=== PATIENT | female | born 1950 | race Caucasian/White ===

== ENCOUNTER 2018-09-04 13:30 | Observation (INO) | payer OTHER ==
[~2018-09-04] VITALS: Ht 165.1 cm; Wt 113.4 kg
[2018-09-04] VITALS (12 sets, daily range): BP systolic 114–160; BP diastolic 62–97
--- NOTE | ~2018-09-04 | H ---
[facility] [place] [address] HISTORY AND PHYSICAL Name: YEIMIOFELIA B Room #: 212-P ADM IN M.R.#: [id number] Admission: 09/04/18 Attend Phys: Bert Zelaya Discharge: Date of : 48 Report #: [id number] THIS REPORT FOR: //name// CC: BREE physician/PCP Bert Zelaya HISTORY OF PRESENT ILLNESS: This is a very pleasant 67-year-old female patient without prior history of cardiovascular disease, who presented to the Emergency Room with complaints of retrosternal discomfort. The patient stated that she had some symptoms a day prior to presentation, which was substernal and nonradiating. It was quite brief in duration and resolved. 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 It resolved quickly after ____, but it recurred. The patient stated that it had some radiation when it recurred into the upper extremities or jaw, but principally her back at times. She denies any syncope or near syncope. No orthopnea, PND, but due to the change in symptoms, presented to the Emergency Room. Upon arriving to the Emergency Room was found to have lateral wall ST segment elevation consistent with ____. PAST MEDICAL HISTORY: Significant for: 1. Obesity. 2. Degenerative joint disease. PAST SURGICAL HISTORY: Significant for multiple tooth extractions. MEDICATIONS AT HOME: None. Had been previously on pain control medications of [place]. ALLERGIES: No known drug allergy. ELECTROCARDIOGRAM: Normal sinus rhythm, ST segment elevation in 1 and aVL with reciprocal changes in the inferior and lateral leads. SOCIAL HISTORY: The patient does not follow a particular exercise regimen. She does consume alcohol socially. Does not smoke and never has. TENZIN heart score is 7. REVIEW OF SYSTEMS: Except for the symptoms previously mentioned and those commensurate with comorbid state, the 10-point review of system is negative. PHYSICAL EXAMINATION: GENERAL: Well-developed, well-nourished, obese white female in mild distress, but resting comfortably. VITAL SIGNS: Present and noted in the chart. HEENT: Normocephalic, atraumatic. Pupils are equal, round, reactive to light and accommodation. Extraocular muscles are intact. Sclerae and conjunctivae [address] [address] HISTORY AND PHYSICAL Name: OFELIA JALLOH Rachid Room #: [facility] IN .R.#: [id number] Admission: 09/04/18 Attend Phys: Bert Zelaya Discharge: Date of : 48 Report #: [id number] are anicteric. NECK: JVD is normal. Carotid upstrokes are bilaterally symmetrical. No bruits are heard. No thyromegaly. No lymphadenopathy. LUNGS: Clear to auscultation. No wheezes, rhonchi or crackles. No CVA tenderness. CARDIAC: Demonstrates a regular rhythm. Normal first and second heart sounds. No ventricular or atrial gallops, no rubs noted. No murmurs. No lifts or heaves, PMI normal. ABDOMEN: Soft, nontender, nondistended. Normal bowel sounds. EXTREMITIES: Without cyanosis, clubbing or edema. Distal pulses are intact. DTR symmetrical. NEUROLOGIC: Cranial nerves 2-12 are grossly normal and symmetrical. PSYCHIATRIC: Alert, oriented with normal affect. SKIN: Warm and dry. IMPRESSION AND PLAN: 1. Acute anterolateral wall myocardial infarction consistent with either proximal circular or diagonal branch. In view of this and discussed options, I am going to proceed directly to the lab support tech for revascularization if warranted. The risks, complications and alternatives to cath, angioplasty, conscious sedation were discussed with the patient. She voiced understanding and wished to proceed. 2. Obesity. The patient has tried multiple times in the past to lose weight, but does not seem to be able to maintain long-term plans from that. Unknown lipid status. 3. Degenerative joint disease, multiple joints present. We will discuss management subsequent to treatment of above. <ELECTRONICALLY SIGNED> By: Bert Zelaya MD 09/04/18 2351 05 35 Bert Zelaya MD /nt
--- NOTE | ~2018-09-04 | EKG ---
[place] [address] [facility] [place] [address] ELECTROCARDIOGRAM REPORT Name: OFELIA JALLOH Rachid Room #: 212-P ADM IN M.R.#: [id number] Admission: 09/04/18 Attend Phys: Bert Zelaya Discharge: Date of : 48 Report #: [id number] THIS REPORT FOR: //name// [facility] ED Test Date: 2018-09-04 Test Time: 13:32:41 Pat Name: OFELIA JALLOH Department: Room: [facility] Gender: F Iv Technician: TANG : 1950 Requested By: Agustin Fleming Order Number: [id number] MD: Marek Panda Measurements Intervals [place] Rate: 80 P: 24 [place]: 201 QRS: -2 QRSD: 87 T: -22 QT: 382 QTc: 441 Interpretive Statements Sinus rhythm Occasional supraventricular complexes Low voltage, precordial leads Nonspecific repol abnormality, diffuse leads Compared to ECG 06/10/2015 10:13:17 ST and T wave abnormality is now present Electronically Signed On 09-05-2018 8:56:31 CDT by Marek Panda [email or web address] <ELECTRONICALLY SIGNED> By: Marek Panda MD, [facility] 09/05/18 0856 1332 1332 Marek Panda MD, [facility] /EPI
--- NOTE | ~2018-09-04 | D ---
[facility] [place] [address] DISCHARGE SUMMARY Name: YEIMIOFELIA Rachid Room #: 212-P [facility] Celestina Rodríguez#: [id number] Admission: 09/04/18 Attend Phys: Bert Zelaya Discharge: 09/05/18 Date of : 48 Report #: [id number] THIS REPORT FOR: //name// CC: BREE physician/PCP Bert Zelaya DATE OF SERVICE: 09/05/2018 ADMITTING DIAGNOSIS: Acute lateral wall myocardial infarction. DISCHARGE DIAGNOSES: 1. Acute lateral wall myocardial infarction. 2. Coronary artery disease. 3. Dyslipidemia. 4. Obesity. DISCHARGE MEDICATIONS: 1. Toprol-XL 12.5 mg b.i.d. 2. Aspirin daily. 3. Effient 10 mg daily. 4. Simvastatin 40 mg daily. 5. Sublingual nitroglycerin p.r.n. PROCEDURES PERFORMED: 1. Left heart catheterization. 2. Percutaneous coronary revascularization with a 2.25 x 12-mm SHANNON Medtronic stent taken to 18 atmospheres. DISCHARGE DIET: [place] [employer] step 1 diet. FOLLOWUP: 1. Dr. Zelaya in 4 weeks. 2. Alexandra Ca nurse practitioner in 7 days. BRIEF CLINICAL HISTORY: See history and physical in the chart. HOSPITAL COURSE: The patient was admitted to the hospital acutely from the Emergency Room and taken to the organic lab worker. Angiography demonstrated an essentially normal right coronary artery, which is quite large and dominant. The left circumflex had moderate irregularities, but the LAD had moderate mid LAD and distal LAD lesions. The first diagonal branch was completely occluded. Post-revascularization and stenting, the vessel was quite large and had excellent flow. Post-procedure, the patient had no electrical or hemodynamic instability. She was allowed to ambulate entire day and subsequently discharged [facility] [address] [place] [address] DISCHARGE SUMMARY Name: OFELIA JALLOH Room #: 212-P [facility] Celestina Rodríguez#: [id number] Admission: 09/04/18 Attend Phys: Bert Zelaya Discharge: 09/05/18 Date of : 48 Report #: [id number] to home in stable condition to follow up with the previously stated discharge instructions and medications. <ELECTRONICALLY SIGNED> By: Bert Zelaya MD 09/07/18 1259 0846 1511 Bert Zelaya MD /nt
--- NOTE | ~2018-09-04 | EKG ---
[address] [address] ELECTROCARDIOGRAM REPORT Name: YEIMIOFELIA Room #: 212- ADM IN M.R.#: [id number] Admission: 09/04/18 Attend Phys: Bert Zelaya Discharge: Date of : 48 Report #: [id number] THIS REPORT FOR: //name// [facility] Test Date: 2018-09-05 Test Time: 07:39:26 Pat Name: OFELIA JALLOH Department: Room: 212 Gender: F Technical Training Specialist: LILLIANA : 1950 Requested By: Bert Zelaya Order Number: [id number] MD: Marek Panda Measurements Intervals [place] Rate: 58 P: 46 [place]: 231 QRS: 71 QRSD: 96 T: 127 QT: 488 QTc: 480 Interpretive Statements Sinus rhythm Abnormal T, probable ischemia, lateral leads Compared to ECG 06/10/2015 10:13:17 No significant change was found Electronically Signed On 09-05-2018 9:21:07 CDT by Marek Panda [email or web address] <ELECTRONICALLY SIGNED> By: Marek Panda MD, [facility] 09/05/18 0921 Marek Panda MD, [facility] /EPI
--- NOTE | ~2018-09-04 | CATHLAB ---
[facility] [address] [place] [address] INVASIVE PROCEDURE REPORT Name: YEIMIOFELIA Rachid Room #: 212-P [facility] IN [facility]#: [id number] Admission: 09/04/18 Attend Phys: Bert Burrell Discharge: Date of : 48 Date of Service: 09/05/18 0953 Report #: [id number] THIS REPORT FOR: //name// APPROVED REPORT Study performed: 09/04/2018 14:00:27 Patient Details Patient Status: In-Patient Room #: The patient is a 67 year-old female Event Personnel Bert Zelaya Twine Reeling Machine Operator, Janay Finch, Kaylee Jaramillo RTR, MALENA Reyes, Jarrod Hill RN RN, Ramesh Peña sprue knocker Performed Art Access - R femoral artery* 46400 Initial Mod Sed Same Phys/QHP Gr5y 499407 02393 Mod Sed Same Phys/QHP Ea 705075 Left Heart Cath w/or w/o Coronaries [id number] [facility] SHANNON Revasc AMI Total/Sub Single LAD C9606 AMIREVSING Hemostasis w/ Mynx, supervision of conscious sedation Indication STEMI Procedure Narrative The patient was brought emergently to the Cardiac Catheterization Laboratory and was prepped and draped in a sterile manner. A PINNACLE 6FR Sheath #[id number] sheath was inserted into the RFA^. Coronary angiography was performed using coronary diagnostic catheters. The right coronary system was accessed and visualized with a JR 4 catheter. The left coronary system was accessed and visualized with a LAUNCHER 6FR JL4 #[id number] catheter. The left ventricle was accessed and visualized with a JR 4 catheter. Left ventricular/Aortic Valve gradient assessed via catheter pullback. Closure device was deployed with a 6 Fr Mynx. The patient tolerated the procedure well and there were no complications associated with the procedure. There was no hematoma. Intraoperative Conscious Sedation Sedation start time: 14:04 Case end Time: 14:50 Versed 2 mg [facility] [address] [place] [address] INVASIVE PROCEDURE REPORT Name: OFELIA JALLOH Room #: 212-P [facility]#: [id number] Admission: 09/04/18 Attend Phys: Bert Burrell Discharge: Date of : 48 Date of Service: 09/05/18 0953 Report #: [id number] Fluoro Time: 7.25 minutes Dose: DAP 8505.00 cGycm2 1290 mGy Contrast Type and Amount: Omnipaque 155 ml Coronary Angiography The patient's coronary anatomy is right dominant. Diagnostic Cath Left Main Moderate caliber vessel normal origin and has a distal circumferential tapering of approximately 40% no flow-limiting lesions are noted and a bifurcation to left anterior descending and left circumflex. LAD Moderate to large caliber vessel of normal origin gives rise early diagonal branch prior to the origin of first septal material scheduler. The LAD proper then continues with a region of 40-50% narrowing prior to reestablishing his baseline diameter. It courses giving rise to numerous septal branches were in the distal portion of the mid LAD there appeared be an eccentric 30-40% lesion. Beyond this the vessel was free of high-grade disease Diagonal 1 Small to moderate caliber vessel which is completely occluded in its proximal portion. Post intervention: The vessel is quite low long in length coursing on the anterolateral aspect. There is an early branch that is less than 5 mm in diameter that has a 90% blockage in it. Circumflex Small to moderate caliber vessel which gives rise to early small marginal branches. These are all short and length and small in caliber and no high-grade lesions aren't identified Right Coronary Large-caliber vessel of normal origin. It is dominant. Gives us a small marginal branches and at the crux of the heart denies some moderate to large caliber posterior descending artery which is free of high-grade disease. Terminates as a posterior wall and a posterolateral branch that extends towards the apex without high-grade lesions noted R PDA Moderate to large caliber vessel without significant high-grade lesions present Left Ventriculography Left Ventriculography was not performed. Hemodynamics The aortic pressure is 188/95 mmHg with a mean of 134 mmHg. The left ventricular pressure is 154/9 mmHg with a mean of mmHg. The left ventricular end diastolic pressure is 29 mmHg. PCI Technique Following termination of need for intervention a 0.014 floppy wire [facility] [address] [place] [address] INVASIVE PROCEDURE REPORT Name: OFELIA JALLOH Room #: 212-P ADM IN M.R.#: [id number] Admission: 09/04/18 Attend Phys: Bert Burrell Discharge: Date of : 48 Date of Service: 09/05/18952 Report #: [id number] was then advanced distal to the occlusion. A 2.25 x 12 mm SHANNON stent was directly deployed across the lesion flow was reestablished. The proximal portion of the stent was not fully deployed and a 2.5 mm x 6 mm noncompliant balloon was then placed across the lesion and taken to 18 joe. The vessel remained widely patent with TENZIN 3 flow noted. No loss of side branch distal embolization or intraluminal thrombus noted patient tired procedure well and was given prasugrel. PCI Technique Lesion Percutaneous coronary intervention was performed on the first diagnonal branch segment. A LAUNCHER 6FR JL4 #[id number] Guide Catheter was used to engage the ostium. A Luge Wire (J) .014 X 182CM #[id number] Interventional Guidewire was used to cross the lesion. STENT DEPLOYMENT A drug-eluting stent RESOLUTE CHARLES RX 2.25 X 12 #[id number] was inserted and inflated up to 14.00atm for 10seconds. Additional Inflation: 18.00atm for 10seconds. POST STENT DEPLOYMENT BALLOON DILATION A Balloon catheter Euphora NC RX 2.5 x 6 #[id number] was inserted and inflated up to 18.00atm for 16seconds. Additional Inflation: 18.00atm for 7seconds. Conclusion 1. Coronary disease, severe, single vessel involving a totally occluded first diagonal branch 2. Abnormal hemodynamics with elevated left ventricular end-diastolic pressures 3. Successful percutaneous revascularization of the first diagonal branch of the LAD with a 2.25 x 12 mm SHANNON Medtronic stent taken to 18 joe Recommendations Cardiac Risk Reduction Program Aggressive Medical Therapy Medications Administered Prasugrel <ELECTRONICALLY SIGNED> By: Bert Zelaya MD 09/05/18952 2 0953 Bert Zelaya MD /INF
--- NOTE | ~2018-09-04 | 2DMMODE ---
[facility] [address] [place] [address] 2 D/M-MODE ECHOCARDIOGRAM Name: OFELIA JALLOH Room #: 212-P ADM IN ..#: [id number] Admission: 09/04/18 Attend Phys: Bert Burrell Discharge: Date of : 48 Date of Service: 09/05/18 0957 Report #: [id number] THIS REPORT FOR: //name// APPROVED REPORT Study performed: 09/05/2018 08:30:50 EXAM: Comprehensive 2D, Doppler, and color-flow Echocardiogram Patient Location: Echo lab Room #: [facility] Status: routine BSA: 2.17 HR: 57 bpm BP: 107/65 mmHg Rhythm: NSR Other Information Study Quality: Adequate Indications STEMI 2D Dimensions RVDd: 36.61 mm IVSd: 12.68 (7-11mm) LVOT Diam: 20.07 (18-24mm) LVDd: 45.41 mm PWd: 13.36 (7-11mm) Ascending Ao: 32.45 (22-36mm) LVDs: 31.71 (25-40mm) Aortic Root: 28.62 mm Volumes Left Atrial Volume (Systole) Single Plane 4CH: 66.01 mL Single Plane 2CH: 75.36 mL LA ESV Index: 35.00 mL/m2 Aortic Valve AoV Peak Norberto.: 1.68 m/s AO Peak Gr.: 11.29 mmHg LVOT Max P.07 mmHg LVOT Max V: 1.23 m/s FUNMILAYO Vmax: 2.32 cm2 Mitral Valve E/A Ratio: 0.8 MV Decel. Time: 146.29 ms MV E Max Norberto.: 0.95 m/s [facility] [address] [place] [address] 2 D/M-MODE ECHOCARDIOGRAM Name: OFELIA JALLOH Room #: 212-[facility]#: [id number] Admission: 09/04/18 Attend Phys: Bert Burrell Discharge: Date of : 48 Date of Service: 09/05/18 0957 Report #: [id number] MV A Norberto.: 1.13 m/s MV PHT: 42.42 ms IVRT: 73.82 ms Pulmonary Valve PV Peak Norberto.: 1.09 m/s PV Peak Gr.: 4.71 mmHg Pulmonary Vein P Vein S: 0.67 m/s P Vein A: 0.26 m/s P Vein D: 0.54 m/s P Vein A Dur.: 96.9 msec P Vein S/D Ratio: 1.24 Left Ventricle The left ventricle is normal size. There is normal LV segmental wall motion. Borderline concentric left ventricular hypertrophy. Left ventricular systolic function is normal. LVEF is 55-60%. Mild diastolic dysfunction is present (impaired relaxation pattern). Right Ventricle The right ventricle is normal size. The right ventricular systolic function is normal. Atria Left atrium is mildly dilated. The right atrium size is normal. Aortic Valve The aortic valve is normal in structure. No aortic regurgitation is present. There is no aortic valvular stenosis. Mitral Valve The mitral valve is normal in structure. Mild mitral regurgitation. No evidence of mitral valve stenosis. Tricuspid Valve The tricuspid valve is normal in structure. There is no tricuspid valve regurgitation noted. Unable to assess PA pressure. Pulmonic Valve The pulmonary valve is normal in structure. Trace pulmonic regurgitation. Great Vessels The aortic root is normal in size. The ascending aorta is normal in size. The inferior vena cava is not well [facility] [address] [place] [address] 2 D/M-MODE ECHOCARDIOGRAM Name: OFELIA JALLOH Rachid Room #: 212-P [facility] IN ..#: [id number] Admission: 09/04/18 Attend Phys: Bert Burrell Discharge: Date of : 48 Date of Service: 09/05/18 0957 Report #: [id number] visualized. Pericardium There is no pericardial effusion. <Conclusion> The left ventricle is normal size. LVEF is 55-60%. Left atrium is mildly dilated. The aortic valve is normal in structure. Mild mitral regurgitation. The tricuspid valve is normal in structure. The pulmonary valve is normal in structure. Trace pulmonic regurgitation. There is no pericardial effusion. <ELECTRONICALLY SIGNED> By: Bert Zelaya MD 09/05/18956 6 6 Bert Zelaya MD /INF
--- NOTE | ~2018-09-04 | EKG ---
[address] [place] [address] ELECTROCARDIOGRAM REPORT Name: OFELIA JALLOH Room #: 212- ADM IN M.R.#: [id number] Admission: 09/04/18 Attend Phys: Bert Zelaya Discharge: Date of : 48 Report #: [id number] THIS REPORT FOR: //name// [facility] Test Date: 2018-09-04 Test Time: 16:32:05 Pat Name: OFELIA JALLOH Department: Room: 212 Gender: F Educational Fundraising Director: Phong CERVANTES : 1950 Requested By: Bert Zelaya Order Number: [id number] MD: Marek Panda Measurements Intervals [place] Rate: 64 P: 33 [place]: 236 QRS: 35 QRSD: 95 T: 102 QT: 463 QTc: 478 Interpretive Statements Sinus rhythm Prolonged IA interval Abnormal T, consider ischemia, lateral leads Compared to ECG 06/10/2015 10:13:[address] segment elevation is no longer present Electronically Signed On 09-05-2018 8:59:00 CDT by Marek Panda [email or web address] <ELECTRONICALLY SIGNED> By: Marek Panda MD, [facility] 09/05/18 0859 1632 1632 Marek Panda MD, [facility] /EPI
[~2018-09-04 13:30] MED LIST: HAIR SKIN NAIL1 EACH PO; HYDROCODONE-AP1 EAC6 PO; MAG-AL PLUS SUS30 ML PO; TYLENOL325 MG PO
[2018-09-04 13:45] LABS: ABSOLUTE NEUTROPHILS 6.2 thou/uL (1.4-8.2); BASOPHILS 0.6 % (0.0-2.0); EOSINOPHILS 1.4 % (0.0-3.0); HEMATOCRIT 46.4 % (37.0-47.0); LYMPHOCYTES 26.8 % (24.0-44.0); MCH 31.4 pg (26.0-34.0); MCHC 34.5 g/dL (28.0-37.0); MCV 90.9 fL (80.0-100.0); MONOCYTES 8.1 % (1.0-8.0); PLATELET COUNT 212 thou/uL (150-400); POLYS 63.1 % (36.0-66.0); RDW 13.2 % (10.5-14.5); WBC 9.8 thou/uL (4.0-11.0)
[2018-09-04 13:51] LABS: CALCIUM 9.6 mg/dL (8.5-10.1); CREATININE 0.8 mg/dL (0.6-1.0); POTASSIUM 3.6 mmol/L (3.5-5.1)
[2018-09-04 14:01] LABS: TROPONIN-I 0.32 ng/mL (<0.06)
[2018-09-05 04:09] VITALS: BP 107/65
[2018-09-05 04:11] LABS: HEMATOCRIT 40.7 % (37.0-47.0); HEMOGLOBIN 14.2 gm/dL (12.0-15.0); MCH 31.4 pg (26.0-34.0); MCHC 34.9 g/dL (28.0-37.0); MCV 89.9 fL (80.0-100.0); RBC 4.52 mil/uL (4.20-5.00); RDW 13.3 % (10.5-14.5)
[2018-09-05 04:27] LABS: ANION GAP 9 mmol/L (7-16); BUN 10 mg/dL (7-18); CALCIUM 8.4 mg/dL (8.5-10.1); CHLORIDE 103 mmol/L (98-107); CHOLESTEROL 217 mg/dL (<200); CO2 27 mmol/L (21-32); CREATININE 0.6 mg/dL (0.6-1.0); GLUCOSE 100 mg/dL (74-106); HDL CHOLESTEROL 51 mg/dL (>40); LDL CHOLESTEROL 148 mg/dL (<100); POTASSIUM 3.5 mmol/L (3.5-5.1); SODIUM 139 mmol/L (136-145); TC:HDL 4.3 Ratio (Not establshd); TRIGLYCERIDE 92 mg/dL (<150); VLDL 18 mg/dL (<40)
[2018-09-05 04:30] LABS: SERUM ASSESSMENT Clear
[2018-09-05 07:58] VITALS: BP 120/72
[2018-09-05] MEDS ORDERED: NITROGLYCERIN0.4 MG SUBLING (08:51)
[2018-09-05] MEDS ORDERED: LISINOPRIL2.5 MG PO (08:51)
[2018-09-05] MEDS ORDERED: ASPIRIN325 PO (08:51)
[2018-09-05] MEDS ORDERED: TOPROL XL25 MG PO (08:51)
[2018-09-05] MEDS ORDERED: EFFIENT10 MG PO (08:51)
[2018-09-05] MEDS ORDERED: CRESTOR20 MG PO (08:52)
[2018-09-05 10:47] VITALS: BP 120/72
== END 2018-09-05 12:50 | disposition home or self-care (01) ==
LOC: ER 13:30 → 2N 15:16 → ENTRNSPT 09-05 12:06 → EDTRNSPTSTS 09-05 12:08 → 2N 09-05 12:50
PROVIDERS: Emergency Medicine; Internal Medicine
DX: I21.09 ST elevation (STEMI) myocardial infarction involving other coronary artery of anterior wall (principal); I25.10 Atherosclerotic heart disease of native coronary artery without angina pectoris; E66.9 Obesity, unspecified; M19.90 Unspecified osteoarthritis, unspecified site; E78.5 Hyperlipidemia, unspecified; Z79.82 Long term (current) use of aspirin
CPT/HCPCS: 10081

== ENCOUNTER → 2020-02-03 | Outpatient (CLI) | payer OTHER ==
[~2020-02-03] MED LIST changes: +ASPIRIN325 PO; +CRESTOR20 MG PO; +EFFIENT10 MG PO; +LISINOPRIL2.5 MG PO; +NITROGLYCERIN0.4 MG SUBLING; +TOPROL XL25 MG PO
== END ==
LOC: SJCVC 10:45
DX: E78.5 Hyperlipidemia, unspecified (principal)

== ENCOUNTER → 2020-06-18 | Outpatient (CLI) | payer OTHER | LOC: SJCVC 13:23 | PROVIDERS: ATTEND Internal Medicine | DX: I25.10 Atherosclerotic heart disease of native coronary artery without angina pectoris (principal); I44.0 Atrioventricular block, first degree; R94.31 Abnormal electrocardiogram [ECG] [EKG]; I10 Essential (primary) hypertension; E78.5 Hyperlipidemia, unspecified; Z95.5 Presence of coronary angioplasty implant and graft; Z79.899 Other long term (current) drug therapy ==